=== PATIENT | female | born 1990 | race Two or more races ===

== ENCOUNTER 2023-12-25 08:23 | Emergency (ER) | payer OTHER ==
[~2023-12-25] VITALS: Ht 154.9 cm; Wt 61.2 kg
[2023-12-25] MEDS ORDERED: MIRALAX510 GM PO (09:16)
== END 2023-12-25 09:22 | disposition home or self-care (01) ==
LOC: ER 08:23
DX: O99.612 Diseases of the digestive system complicating pregnancy, second trimester (principal); K92.89 Other specified diseases of the digestive system; Z3A.16 16 weeks gestation of pregnancy; K59.00 Constipation, unspecified; Z88.2 Allergy status to sulfonamides

== ENCOUNTER 2024-05-09 14:30 | Inpatient (IN) | payer OTHER ==
[~2024-05-09] VITALS: Ht 160 cm; Wt 69.9 kg
[~2024-05-09 14:30] MED LIST: MIRALAX510 GM PO
[2024-05-21] MEDS ORDERED: PRENATAL TABLE1 EAC1 PO (23:48)
[2024-05-21] MEDS ORDERED: ACETAMINOPHEN500 M1 PO (23:49)
[2024-05-21] MEDS ORDERED: CITRUCEL500 MG PO (23:50)
[2024-05-22] MEDS ORDERED: MORPHINE SULFATE 4 MG/ML VIAL IV PRN (02:45)
[2024-05-22] MEDS ORDERED: RINGERS SOLUTION,LACTATED 1,000 ML IV SCH (02:45)
[2024-05-22] MEDS ORDERED: AZITHROMYCIN 500 MG TABLET PO ONE (02:45)
[2024-05-22] MEDS ORDERED: OXYTOCIN 1,000 ML IV SCH (06:30)
[2024-05-22] MEDS ORDERED: IBUprofen 400 MG TABLET PO PRN (06:30)
[2024-05-22] MEDS ORDERED: CHLORHEXIDINE GLUCONATE 120 ML BOTTLE TP SCH (06:30)
[2024-05-22] MEDS ORDERED: ERYTHROMYCIN BASE 1 GM TUBE OP SCH (06:30)
[2024-05-22] MEDS ORDERED: CEFAZOLIN SODIUM 1,000 MG VIAL IV ONE (07:15)
[2024-05-22] MEDS ORDERED: LIDOCAINE HCL 1% 10ML VIAL PERCUT ONE (07:15)
[2024-05-22] MEDS ORDERED: DOCUSATE SODIUM 100MG CAP PO SCH (09:00)
[2024-05-23 06:28] LABS: HEMATOCRIT 23.9 % (36.0-45.00); MEAN CELL VOLUME 88.3 fL (80.00-100.00); MEAN CORPUSCULAR HGB CONC 34.5 g/dl (32.0-36.0); PLATELET COUNT 231 K/uL (150-450); RED BLOOD COUNT 2.71 M/uL (4.00-6.00); RED CELL DISTRIBUTION WIDTH 13.1 % (11.5-14.5)
[2024-05-23 06:45] LABS: HEMOGLOBIN 8.3 g/dL (12.0-15.00); MEAN CORPUSCULAR HEMOGLOBIN 30.6 pg (27.00-32.0)
[2024-05-23] MEDS ORDERED: LORATADINE 10 MG TABLET PO STA (18:58)
[2024-05-23] MEDS ORDERED: AZITHROMYCIN 250 MG TABLET PO SCH (21:00)
[2024-05-24] MEDS ORDERED: LORATADINE 10 MG TABLET PO SCH (09:00)
[2024-05-25] MEDS ORDERED: IBU800 MG PO (17:16)
== END 2024-05-24 15:18 | disposition home or self-care (01) | DRG 805 ==
LOC: LDR 05-22 02:35 → OB/GYN 05-22 02:35
PROVIDERS: Obstetrics & Gynecology Gynecology; ADMIT Obstetrics & Gynecology; ATTEND Obstetrics & Gynecology
PROC: 10E0XZZ Delivery of Products of Conception, External Approach (ICD-10-PCS; principal; 2024-05-22)
PROC: 0UQMXZZ Repair Vulva, External Approach (ICD-10-PCS; 2024-05-22)
PROC: 4A1HXCZ Monitoring of Products of Conception, Cardiac Rate, External Approach (ICD-10-PCS; 2024-05-22)
PROC: 8E0ZXY6 Isolation (ICD-10-PCS; 2024-05-22)
DX: O70.0 First degree perineal laceration during delivery (principal); U07.1 COVID-19; Z37.0 Single live birth; O98.52 Other viral diseases complicating childbirth; B96.0 Mycoplasma pneumoniae [M. pneumoniae] as the cause of diseases classified elsewhere; Z3A.39 39 weeks gestation of pregnancy

== ENCOUNTER 2024-05-17 11:10 | Outpatient (CLI) | payer OTHER | END 2024-05-17 15:53 | disposition home or self-care (01) | LOC: NST 11:10 | PROVIDERS: ATTEND Obstetrics & Gynecology Gynecology | DX: Z34.83 Encounter for supervision of other normal pregnancy, third trimester (principal) ==

== ENCOUNTER 2024-05-21 17:13 | Outpatient (CLI) | payer OTHER ==
[2024-05-21] MEDS ORDERED: PRENATAL TABLE1 EAC1 PO (23:48)
[2024-05-21] MEDS ORDERED: ACETAMINOPHEN500 M1 PO (23:49)
[2024-05-21] MEDS ORDERED: CITRUCEL500 MG PO (23:50)
== END 2024-05-21 18:50 | disposition home or self-care (01) ==
LOC: NST 17:13
PROVIDERS: ATTEND Obstetrics & Gynecology Gynecology
DX: Z34.83 Encounter for supervision of other normal pregnancy, third trimester (principal)

== ENCOUNTER 2024-05-21 22:23 | Outpatient (CLI) | payer OTHER ==
[~2024-05-21] VITALS: Ht 160 cm; Wt 69.9 kg
[2024-05-21] MEDS ORDERED: MORPHINE SULFATE 4 MG/ML CARTRIDGE IV PRN (23:45)
[2024-05-21] MEDS ORDERED: RINGERS SOLUTION,LACTATED 1,000 ML IV SCH (23:45)
[2024-05-21] MEDS ORDERED: PRENATAL TABLE1 EAC1 PO (23:48)
[2024-05-21] MEDS ORDERED: ACETAMINOPHEN500 M1 PO (23:49)
[2024-05-21] MEDS ORDERED: CITRUCEL500 MG PO (23:50)
[2024-05-22 00:37] LABS: HEMATOCRIT 30.6 % (36.0-45.00); HEMOGLOBIN 10.7 g/dL (12.0-15.00); MEAN CELL VOLUME 88.8 fL (80.00-100.00); MEAN CORPUSCULAR HEMOGLOBIN 31.1 pg (27.00-32.0); PLATELET COUNT 208 K/uL (150-450); RED BLOOD COUNT 3.44 M/uL (4.00-6.00); RED CELL DISTRIBUTION WIDTH 13.7 % (11.5-14.5); URINE APPEARANCE Cloudy; URINE BILIRRUBIN Negative (NEGATIVE); URINE BLOOD Large; URINE COLOR Yellow; URINE GLUCOSE Negative (NEGATIVE); URINE LEUKOCYTE Small; URINE NITRATE Negative; URINE PROTEIN 30 (NEGATIVE)
[2024-05-22 00:42] LABS: URINE BACTERIA 1598.6 uL (0.0-1933); URINE EPITHELIAL CELLS 64.7 uL (0.0-38.8); URINE RBC 134.2 uL (0.0-20.8); URINE WBC 195.4 uL (0.0-23.2)
[2024-05-22 00:49] LABS: INR < 0.93; PARTIAL THROMBOPLASTIN TIME 27.9 SECONDS (22.0-34.0); PROTHROMBIN TIME 9.3 SECONDS (9.0-11.5)
[2024-05-22 00:54] LABS: ALBUMIN 2.7 gm/dL (3.4-5.0); BILIRUBIN TOTAL 0.31 mg/dL (0.3-1.2); CALCIUM 9.1 mg/dL (8.5-10.1); CREATININE SERUM 0.57 mg/dL (0.55-1.02); GFR 121.41; GLOBULINA 3.5 G/DL (2.4-3.5); POTASSIUM 4.07 mEq/L (3.5-5.1); TOTAL PROTEIN 6.2 gm/dL (6.4-8.2)
[2024-05-22 01:04] LABS: URINE CRYSTALS FEW /HPF
== END 2024-05-22 10:34 | disposition still patient (30) ==
LOC: OBS/DEL 22:23
PROVIDERS: ATTEND Obstetrics & Gynecology Gynecology
DX: O26.893 Other specified pregnancy related conditions, third trimester (principal)

== ENCOUNTER 2024-05-25 14:23 | Emergency (ER) | payer OTHER ==
[~2024-05-25] VITALS: Ht 160 cm; Wt 68.0 kg
[~2024-05-25 14:23] MED LIST changes: +ACETAMINOPHEN500 M1 PO; +CITRUCEL500 MG PO; +PRENATAL TABLE1 EAC1 PO
[2024-05-25] MEDS ORDERED: KETOROLAC TROMETHAMINE 30 MG VIAL IM STA (17:02)
[2024-05-25] MEDS ORDERED: IBU800 MG PO (17:16)
== END 2024-05-25 17:35 | disposition home or self-care (01) ==
LOC: ER 14:24
DX: O92.79 Other disorders of lactation (principal); Z88.2 Allergy status to sulfonamides

== ENCOUNTER → 2024-11-27 | Outpatient (CLI) | payer OTHER ==
[~2024-11-27] MED LIST changes: +IBU800 MG PO
== END | disposition home or self-care (01) ==
LOC: SONOGRAMA 14:11
PROVIDERS: ATTEND Obstetrics & Gynecology Gynecology
DX: N63 Unspecified lump in breast (principal); Z12.31 Encounter for screening mammogram for malignant neoplasm of breast; N64.4 Mastodynia; N60.11 Diffuse cystic mastopathy of right breast

== ENCOUNTER 2025-10-25 01:50 | Emergency (ER) | payer OTHER ==
[~2025-10-25] VITALS: Ht 162.6 cm; Wt 61.2 kg
[2025-10-25 03:52] LABS: INR 1.0
[2025-10-25 03:56] LABS: ALT/SGPT 19.0 U/L (12-78); AST/SGOT 13.0 U/L (15-37); BILIRUBIN TOTAL 1.17 mg/dL (0.3-1.2); BUN CREA RATIO 35.0 (7.0-25.0); CREATININE SERUM 0.66 mg/dL (0.55-1.02); GFR 101.91; GLOBULINA 3.7 G/DL (2.4-3.5); GLUCOSE FASTING 110.0 mg/dL (65-100); OSMOLALITY SERUM 284.0 MOSM/KG (275-295)
[2025-10-25] MEDS ORDERED: FAMOTIDINE/PF 20 MG/2 ML VIAL IV PUSH STA (03:59)
[2025-10-25] MEDS ORDERED: ONDANSETRON HCL 2 MG/ML VIAL IV STA (03:59)
[2025-10-25 04:00] LABS: D DIMER < 0.19 MG/L
[2025-10-25 04:04] LABS: BASO % 0.2 % (0.1-1.2); EOS # 0.27 (0.04-0.54); EOS % 2.7 % (0.7-7.0); LYMPH # 0.55 (1.18-3.74); LYMPH % 5.4 % (19.3-53.1); MEAN PLATELET VOLUME 9.80 fl (9.4-12.4); MONO # 0.30 (0.24-0.82); MONO % 3.0 % (4.7-12.5); NEUT # 8.95 (1.56-6.13); NEUT % 88.5 % (34.0-71.1); RED CELL DISTRIBUTION WIDTH 11.7 % (11.6-14.4)
[2025-10-25] MEDS ORDERED: ONDANSETRON HCL 2 MG/ML VIAL ONE (04:13)
[2025-10-25] MEDS ORDERED: FAMOTIDINE/PF 20 MG/2 ML VIAL ONE (04:13)
== END 2025-10-25 06:00 | disposition home or self-care (01) ==
LOC: ER 01:50
PROVIDERS: General Practice
DX: R07.89 Other chest pain (principal); R06.02 Shortness of breath; Z88.2 Allergy status to sulfonamides